=== PATIENT | female | born 1990 | race Caucasian/White ===

== ENCOUNTER 2016-05-29 09:39 | Inpatient (IN) | payer MEDICAID ==
[~2016-05-29] VITALS: Ht 167.6 cm; Wt 80.0 kg
--- NOTE | ~2016-05-29 | HP ---
PATIENT'S NAME: SHIRA HUNTER [facility] AGE: 26 Y [address] ROOM: [place] [address] LOCATION: GOBS ADMIT DATE: 05/29/2016 History & Physical DISCHARGE DATE: FAMILY PHYSICIAN: Sami Cardenas MD ATTENDING PHYSICIAN: eLeann Rojas DATE OF SERVICE: 05/29/2016 CHIEF COMPLAINT: contractions. HISTORY OF PRESENT ILLNESS: This is a 26-year-old 2, para 0-1-0-1 female at 32 weeks and 4 days gestation, who presented to the office at [facility] with contractions. She is a patient of Dr. Sami Cardenas. She was evaluated by Dr. Rojas today. She has a history of 1 prior delivery at 35 weeks. She was 1-cm dilated at the office. Her dating is by first trimester ultrasound. Her estimated date of confinement is 07/20/2016. This has been relatively uncomplicated. She does have a history of severe asthma and just got off a steroid dose pack for that. She is currently requiring breathing treatment secondary to the environmental exacerbation of her asthma. She has a history of one delivery at 35 weeks. She had a spontaneous vaginal delivery and that baby was 5 pounds and 13 ounces. She has had no leakage of fluid and no vaginal bleeding. She has had contractions about every 12 to 15 minutes, but states that they are relatively uncomfortable. PAST MEDICAL HISTORY: 1. Severe asthma. 2. labor. PAST SURGICAL HISTORY: Rotator cuff repair. CAMPUS PRESIDENT HISTORY: She is a G2, P0-1-0-1. She has had one spontaneous vaginal delivery at 35 weeks. She had a normal anatomy ultrasound this with an anterior placenta and no previa. She is blood type O positive. The rest of her labs, I had not located at this time. She has group B strep, unknown. She has no history of cervical dysplasia. She is up-to-date on her Pap smears. GC and chlamydia negative. MEDICATIONS: 1. Albuterol. 2. Zyrtec. 3. Feosol. PATIENT'S NAME: SHIRA HUNTER [facility] AGE: 26 Y [address] ROOM: [place] [address] LOCATION: [facility] ADMIT DATE: 05/29/2016 History & Physical DISCHARGE DATE: FAMILY PHYSICIAN: Sami Cardenas MD ATTENDING PHYSICIAN: Leeann Rojas 4. Prevacid. 5. Xopenex. 6. vitamins. ALLERGIES: NO KNOWN MEDICAL ALLERGIES. FAMILY HISTORY: Noncontributory. SOCIAL HISTORY: She is . She does not smoke, drink, or use street drugs. REVIEW OF SYSTEMS: Positive for contractions. She has good movement. No vaginal bleeding. No leakage of fluid. She has some wheezing and some occasional shortness of breath. All other systems are reviewed and negative. PHYSICAL EXAMINATION: VITAL SIGNS: Stable. She is afebrile. She is alert and oriented. HEART: Regular rate and rhythm. LUNGS: Clear to auscultation. ABDOMEN: Gravid. Soft, nontender, and nondistended. Some contractions are palpable. EXTREMITIES: No clubbing, cyanosis, or edema. Her cervix is 3 cm, 70%, -2 station. She has a narrow pelvic inlet. The fetus feels to be cephalic on ultrasound. It is confirmed that the baby is cephalic with a normal-appearing SHELDON. Estimated weight of 2194 g. ASSESSMENT: 1. Intrauterine at 32 weeks and 4 days. 2. labor with a history of delivery. 3. Severe asthma. PLAN: 1. Magnesium sulfate for tocolysis. 2. Celestone for lung maturity. 3. Group B strep culture and group B strep prophylaxis until the culture returns. 4. Asthma, on medications. 5. Respiratory therapy consult. PATIENT'S NAME: SHIRA HUNTER [facility] AGE: 26 Y [address] ROOM: [place] [address] LOCATION: [facility] ADMIT DATE: 05/29/2016 History & Physical DISCHARGE DATE: FAMILY PHYSICIAN: Sami Cardenas MD ATTENDING PHYSICIAN: Leeann Rojas MD AJJ/kashif /[id number] D: [id number] T: [id number] HISTORY & PHYSICAL
--- NOTE | ~2016-05-29 | OR ---
PATIENT'S NAME: JIMENA HUNTER [facility] AGE: 26 Y [address] ROOM: [facility] [place], [place] [address] LOCATION: GOBS ADMIT DATE: 05/29/2016 OR/Procedure Report DISCHARGE DATE: FAMILY PHYSICIAN: Sami Cardenas MD ATTENDING PHYSICIAN: Ovi Rojas SURGEON: Ovi Rojas MD SUPERVISOR BLOOD: DATE OF PROCEDURE: 05/30/2016 PREOPERATIVE DIAGNOSES: 1. labor. 2. Thirty-two weeks and 5 day . PROCEDURE PERFORMED: Spontaneous vaginal delivery. ANESTHESIA: Epidural. PROCEDURE IN DETAILS: Jimena is a 26-year-old, 2, para 1, female who arrived with contractions. Dr. Clifton was consulted. We put her on Mag and tried to stop labor. She received Celestone and antibiotics IV while group B strep culture is pending. She broke through contractions. Her Mag level was 5.5. She was continuing to contract and dilated to 4 cm, 90% effaced. She was in quite a bit of discomfort, so labor epidural was placed and the magnesium was discontinued. She progressed spontaneously did complete dilation, had spontaneous rupture of membranes with clear bloody fluid and then pushed. Presentation left occiput posterior. Delivery of the head were controlled on the perineum. There was a loose nuchal cord. Baby delivered through the cord. The cord was clamped and cut and handed over to Dr. Hudson and the NICU nurse immediately. Baby is a male, weighing 4 pounds 10 ounces with score of 7 and 8 at one and five minutes. Baby was taken back to the NICU. Cord pH was obtained and was 7.22. Cord blood was obtained. Placenta delivered spontaneously and intact. There was evidence of an abruption. We will send the placenta for pathology. She did receive Pitocin after delivery of the baby. There were no cervical or vaginal lacerations. There was a small first- degree midline tear on the perineum. It was repaired with 3-0 Vicryl without difficulty. EBL was 300 mL. No complications. Mother resting comfortably in the birthing room after delivery. Baby in the NICU. OVI M CLAUDINE, MD BME/mariannel PATIENT'S NAME: JIMENA HUNTER [facility] AGE: 26 Y [address] ROOM: [place] [address] LOCATION: [facility] ADMIT DATE: 05/29/2016 OR/Procedure Report DISCHARGE DATE: FAMILY PHYSICIAN: Sami Cardenas MD ATTENDING PHYSICIAN: Oiv Rojas /[id number] d: 05/30/16 1349 t: 06/01/16 0955, OPERATIVE SUMMARY
[2016-05-29] MEDS ORDERED: ADVAIR HFA 230/1 KIT INH (10:33)
[2016-05-29] MEDS ORDERED: XOPENEX1.25 MG/3 INH (10:34)
[2016-05-29] MEDS ORDERED: PROAIR HFA8.5 GM INH (10:35)
[2016-05-29] MEDS ORDERED: PREVACID15 MG PO (10:36)
[2016-05-29] MEDS ORDERED: PRENATAL 1+1)(P1 TAB PO (10:37)
[2016-05-29] MEDS ORDERED: FEOSOL325 MG PO (10:38)
[2016-05-29] MEDS ORDERED: ZYRTEC10 MG PO (10:39)
[2016-05-29 11:18] LABS: BASOPHIL % 0.1 %; EOSINOPHIL # 0.1 K/uL (0.0-0.5); EOSINOPHIL % 1.1 %; HEMATOCRIT 40.1 % (33.0-46.0); HEMOGLOBIN 13.5 g/dL (11.0-15.0); IMMATURE GRANULOCYTE # 0.1 K/uL (0.0-0.3); IMMATURE GRANULOCYTE % 0.8 %; LYMPHOCYTE # 1.4 K/uL (0.8-4.0); LYMPHOCYTE % 19.2 %; MCH 30.3 pg (27.0-34.0); MCHC 33.7 gm/dL (32.0-36.5); MCV 89.9 fl (83.0-98.0); MONOCYTE # 0.6 K/uL (0.0-1.0); MONOCYTE % 7.6 %; MPV 9.9 fl (9.4-12.4); NEUTROPHIL # (ANC) 5.2 K/uL (1.8-7.8); NEUTROPHIL % 71.2 %; NRBC % 0 /100WBC (0-0.00); PLATELET COUNT 219 K/uL (150-450); RBC 4.46 M/uL (3.50-5.00); WBC 7.3 K/uL (4.0-11.0)
[2016-05-29 11:34] LABS: ALBUMIN 2.8 gm/dL (3.5-5.0); ALK PHOS 105 IU/L (33-138); ALT 25 IU/L (12-78); ANION GAP 16.7 (10.0-19.0); AST 18 IU/L (10-40); BLOOD UREA NITROGEN 5 mg/dL (6-24); CALCIUM 8.6 mg/dL (8.5-10.5); CHLORIDE 110 mMol/L (96-110); CO2 20 mMol/L (22-32); CREATININE 0.5 mg/dL (0.5-1.1); ESTIMATED GFR (MDRD EQUATION) > 60; POTASSIUM 3.7 mMol/L (3.7-5.1); SODIUM 143 mMol/L (135-145); TOTAL BILIRUBIN 0.4 mg/dL (0.0-1.5); TOTAL PROTEIN 6.5 g/dL (6.0-8.4)
[2016-05-29 11:56] LABS: BILIRUBIN URINE NEGATIVE (NEGATIVE); BLOOD URINE NEGATIVE /UL (NEGATIVE); COLOR URINE YELLOW (YELLOW); GLUCOSE URINE NEGATIVE (NEGATIVE); KETONE URINE 50 mg/dL (NEGATIVE); LEUKOCYTES URINE NEGATIVE /UL (NEGATIVE); NITRITE URINE NEGATIVE (NEGATIVE); PROTEIN URINE NEGATIVE (NEGATIVE); SPEC GRAVITY URINE 1.015 (1.003-1.035); TURBIDITY URINE CLEAR (CLEAR); UROBILINOGEN URINE NORMAL (NORMAL)
[2016-05-30 10:00] LABS: PCO2 37 mmHg (35-45)
[2016-05-30 10:01] LABS: BICARBONATE 17.2 mmol/L (18.0-23.0); PO2 22 mmHg (80-90)
--- NOTE | 2016-05-30 16:59 | NUR ---
Last VS: T:98.8 P:87 R:17 BP:124/66/86 Pain ratin Last pain med: Percocet Medicated at:1431 Effective: Yes Breasts:soft Nipples:intact Fundus:firm, even, midline Lochia:small Epis/Perineum:approximated, tender Voiding well: yes Significant event: *motrin given at 1050, MMR given, pt visits baby in NICU, tolerates activity well, pumping independently.
[2016-05-31 04:47] LABS: BASOPHIL % 0.1 %; EOSINOPHIL % 0.1 %; HEMATOCRIT 33.6 % (33.0-46.0); HEMOGLOBIN 11.1 g/dL (11.0-15.0); IMMATURE GRANULOCYTE # 0.1 K/uL (0.0-0.3); IMMATURE GRANULOCYTE % 0.7 %; LYMPHOCYTE # 1.8 K/uL (0.8-4.0); LYMPHOCYTE % 18.9 %; MCH 30.1 pg (27.0-34.0); MCV 91.1 fl (83.0-98.0); MONOCYTE # 0.6 K/uL (0.0-1.0); MONOCYTE % 6.4 %; NEUTROPHIL # (ANC) 7.2 K/uL (1.8-7.8); NEUTROPHIL % 73.8 %; NRBC % 0 /100WBC (0-0.00); PLATELET COUNT 193 K/uL (150-450); RBC 3.69 M/uL (3.50-5.00); RDW-CV 14.5 % (11.9-14.6); WBC 9.7 K/uL (4.0-11.0)
--- NOTE | 2016-05-31 05:21 | NUR ---
VSS. FUNDUS FIRM, EVEN WITH UMBOLICUS. MOTRIN AND PERCOCET BOTH LAST AT 0345. DOING WELL, AMBULATES TO NICU. BREAST PUMPING WELL.
--- NOTE | 2016-05-31 12:45 | NUR ---
Introduced self/role to patient and her in the NICU. Jimena and Hiro live in [place] and have a 7 year old. She has a history of post- depression so went thru those signs and systems and gave them a handout. They have medicaid. Encouraged them to call and get baby added, provided that number. Also gave them a list of area resources - some may not cover their county but could connect them if needed. They don't have all their baby supplies but have plenty of time to figure that out now. Talked about the [facility] and are interested in that once discharged - will pass onto CM Gayle. They had no questions or concerns at time. CM will continue to follow baby in the NICU once mom discharged.
--- NOTE | 2016-05-31 17:11 | NUR ---
Significant Event: Follow up: VSS, Hbg 11.1, from 13.5, Sl dc'd. On protonics, am dose. Hx of asthma, RT here for Tx's. Medicated with Motin @ 1205, perocet 1) @ 1536, needs percocet split. pumping every 3 hrs. Spends alot of time in [place], with her baby.
--- NOTE | 2016-06-01 05:05 | NUR ---
VSS. FUNDUS FIRM, -1, SMALL FLOW. VOIDING WELL WITHOUT DIFFICULTY. LAST HAD PERCOCET AT 0235. PUMPING. RT COMES BID FOR ASTHMA TX.
[2016-06-01] MEDS ORDERED: SURFAK240 MG PO (15:25)
[2016-06-01] MEDS ORDERED: MOTRIN800 MG PO (15:26)
[2016-06-01] MEDS ORDERED: PERCOCET 5-3251 EACH PO (15:26)
--- NOTE | 2016-06-01 17:51 | NUR ---
Met with mom and dad at Simón's bedside today. Introduced myself and explained my role with care manangement. Instructed them to contact their insurance company and notify them of baby's . Reviewed signs and symptoms of post depression with mom. Arranged for her to stay at the [facility] under Ambulatory Room and Board with her Medicaid. I reserved a room for the next two weeks. Will extend the room longer if needed. WIll continue to follow and offer supports as needed.
== END 2016-06-01 16:00 | disposition disaster alternative care site (69) | DRG 774 ==
LOC: GOBS 09:39
PROVIDERS: ADMIT Family Medicine
PROC: 0HQ9XZZ Repair Perineum Skin, External Approach (ICD-10-PCS; principal; 2016-05-30)
PROC: 10E0XZZ Delivery of Products of Conception, External Approach (ICD-10-PCS; principal; 2016-05-30)
DX: O60.14X0 Preterm labor third trimester with preterm delivery third trimester, not applicable or unspecified (principal); O45.93 Premature separation of placenta, unspecified, third trimester; J45.901 Unspecified asthma with (acute) exacerbation; O70.0 First degree perineal laceration during delivery; O69.81X0 Labor and delivery complicated by cord around neck, without compression, not applicable or unspecified; O75.89 Other specified complications of labor and delivery; Z3A.32 32 weeks gestation of pregnancy; Z37.0 Single live birth
CPT/HCPCS: J0610; J0702; J2540; J2590; J3010; J3475; J7120